=== PATIENT | male | born 1950 | race Two or more races ===

== ENCOUNTER 2017-01-04 13:39 | Emergency (ER) | payer OTHER ==
[~2017-01-04] VITALS: Ht 165.1 cm; Wt 97.0 kg
[~2017-01-04 13:39] MED LIST: ALEN35TA23 PO; ATOR20TA38 PO; ATOR40TA68 PO; CALC-67 PO; INSU100C SC; LANT3I SC; LISI20TA11 PO; LOSA25TA5 PO
[2017-01-04 13:45] VITALS: Ht 165.1 cm; Wt 97.0 kg
[2017-01-04] MEDS ORDERED: ONDANSETRON (ODT) 4 MG TAB ODT STA (14:41)
[2017-01-04] MEDS ORDERED: HYDROCODONE/APAP (10/325) TAB PO ONE (15:00)
--- NOTE | 2017-01-04 15:42 | RADRPT ---
PROCEDURE: XR Hip 2 Views. CLINICAL INDICATION: Left hip pain. TECHNIQUE: AP and frog lateral views of the left hip were performed. COMPARISON: None. FINDINGS: The osseous structures are intact. No destructive bony lesions are observed. Mild narrowing of the left hip joint is seen. Minimal osteophytosis is seen along the superior margin of the acetabulum. The soft tissues surrounding the hip are unremarkable. IMPRESSION: Mild osteoarthritis of the left hip. If further characterization is needed CT or MRI could be helpful. If there is high clinical suspicion for traumatic injury, further evaluation with CT should be consi dered. RPTAT: AA .Asher Gilman MD, MD Date Time Electronically viewed and signed by .Asher Gilman MD, on 01/04/2017 15:42 .P/
--- NOTE | 2017-01-04 15:45 | RADRPT ---
PROCEDURE: XR Lumbar Spine 3 Views. CLINICAL INDICATION: Low back pain. TECHNIQUE: Lumbar spine study including AP, lateral and coned L5-S1 views was performed. COMPARISON: No prior studies are available for comparison. FINDINGS: Lumbar spine demonstrates a normal lordosis. No fractures or destructive bony lesions are observed. Moderate intervertebral disk space narrowing is identified from T10-T12. Mild intervertebral disk space narrowing is identified at T12-L1. Minimal anterior osteophytosis is identified from L1-L5. The facet joints are grossly unremarkable. Calcified atherosclerosis is noted in the aorta. IMPRESSION: Moderate degenerative disk disease from T10-T12. Mild degenerative disk disease from T12-L5. Calcified atherosclerosis in the aorta. If further characterization is needed CT or MRI could be helpful. If there is high clinical suspicion for traumatic injury, further evaluation with CT should be consi dered. RPTAT: AA .Asher Gilman MD, MD Date Time Electronically viewed and signed by .Asher Gilman MD, MD on 01/04/2017 15:44 .P/
[2017-01-04] MEDS ORDERED: IBUP800T25 PO (15:52)
[2017-01-04] MEDS ORDERED: HYDR-906 PO (15:52)
--- NOTE | 2017-01-04 15:56 | ERD ---
ER Documentation Chief Complaint Date/Time DATE: 01/04/17 TIME: 15:53 Chief Complaint 9/10 lower back pain x 2 weeks HPI Patient is a 66-year-old male who has lower back pain on the left side he has had for over 2 weeks. He has taken medications such as tramadol, ibuprofen, meloxicam which have not helped. The pain radiates down the left side it is an 8 out of 10 sharp. There is no trauma. No numbness or tingling. No bowel or bladder incontinence. No saddle anesthesia. Patient is ambulatory. Denies any dysuria hematuria or increased urinary frequency. ROS All systems reviewed and are negative except as per history of present illness. Medications Home Meds Active Scripts Hydrocodone/Acetaminophen (Hector 5-325 Tablet) 1 Each Tablet, 1 TAB PO Q6H Y for PAIN, #20 TAB Prov:EMMANUEL MIKE PA-C 01/04/17 Ibuprofen* (Motrin*) 800 Mg Tab, 800 MG PO Q6, #30 TAB Prov:EMMANUEL MIKE PA-C 01/04/17 Reported Medications Atorvastatin* (Atorvastatin*) 40 Mg Tablet, 40 MG PO QHS, #30 TAB 05/25/16 Losartan Potassium* (Losartan Potassium*) 25 Mg Tablet, 25 MG PO DAILY, TAB 05/25/16 Insulin Lispro (Humalog) 100 U/Ml Cartridge, 0 SC SLIDING SCALE AC, EA 07/29/15 Insulin Glargine* (Lantus*) 100 Unit/Ml Soln, 1 UNIT SC BID, #1 VIAL 07/29/15 Lisinopril* (Lisinopril*) 20 Mg Tablet, 20 MG PO DAILY, #30 TAB 07/29/15 Alendronate Sodium* (Alendronate Sodium*) 35 Mg Tablet, 35 MG PO Q7D, #4 TAB 07/29/15 Atorvastatin Calcium* (Atorvastatin Calcium*) 20 Mg Tablet, 20 MG PO QHS, #30 TAB 07/29/15 Calcium Carbonate/Vitamin D3* (Os-Gus 500+D*) 1 Tab Tablet, 1 TAB PO TID, TAB 07/29/15 Allergies Allergies: Coded Allergies: No Known Allergy (Unverified , 01/04/17) PMhx/Soc History of Surgery: Yes (CATARACT BOTH EYES, ) Anesthesia Reaction: No Hx Neurological Disorder: No Hx Respiratory Disorders: No Hx Cardiac Disorders: Yes (HTN) Hx Psychiatric Problems: No Hx Miscellaneous Medical Probl: Yes (HIGH CHOLESTEROL DIABETES OSTEOPOROSIS) Hx Alcohol Use: No Hx Substance Use: No Hx Tobacco Use: No Smoking Status: Never smoker FmHx Family History: diabetes Physical Exam Vitals Vital Signs Date Time Temp Pulse Resp B/P Pulse Ox O2 Delivery O2 Flow Rate FiO2 01/04/17 13:45 98.2 83 18 128/62 95 Physical Exam INITIAL VITAL SIGNS: Reviewed by me GENERAL: Awake, alert and oriented x 4, well appearing, nontoxic, speaking in full sentences. No acute distress HEAD: Atraumatic NECK: Supple. No masses. Full range of motion. No meningismus. No midline tenderness. RESPIRATORY: Clear to auscultation bilaterally. Symmetric chest wall rise. No wheezing or rales. No accessory muscle use. CV: Regular rate and rhythm. No murmurs, rubs, or gallops. abd: Soft nondistended, nontender EXTREMITIES: No clubbing or cyanosis. No edema. Moving all extremities normally. BACK: No midline tenderness to palpation. No step-offs. Results 24 hrs Current Medications Medications (Trade) Dose Ordered Sig/Robel Route PRN Reason Start Time Stop Time Status Last Admin Dose Admin Acetaminophen/ Hydrocodone Bitart (Hector (10/325)) 1 tab ONCE ONCE PO 01/04/17 15:00 01/04/17 15:01 DC Ondansetron HCl (Zofran Odt) 4 mg ONCE STAT ODT 01/04/17 14:41 01/04/17 14:43 DC Procedures/MDM The differential diagnosis includes but is not limited to muscle strain, ligament strain, contusion, arthritis, discogenetic disease, non-musculoskeletal , cauda equina syndrome, cord compression, abscess and others. Patients is alert, oriented, well appearing, and in no distress with normal vital signs. There is no fever, tachycardia, or tachypnea. X-ray lumbar spine and hip showed no acute traumatic abnormalities. Patient was discharged with ibuprofen and Hector a copy of radiology reports. Patient counseled regarding my diagnostic impression and care plan. Prior to discharge all questions answered. Pt agrees with treatment plan and understands strict return precautions. Pt is instructed to follow up with primary care provider within 24-48 hours. Precautionary instructions provided including instructions to return to the ER if not improving or for any worsening or changing symptoms or concerns. Departure Diagnosis: Primary Impression: Back pain Condition: Stable Patient Instructions: Back Pain W/ Sciatica Additional Instructions: Call your primary care doctor TOMORROW for an appointment during the next 1-2 days.See the doctor sooner or return here if your condition worsens before your appointment time. EMMANUEL MIKE PA-C Jan 04, 2017 15:56
[2017-01-04 16:07] VITALS: BP 122/62; PULSE 70; RESP 18; TEMP 98.2
== END 2017-01-04 16:09 | disposition home or self-care (01) ==
LOC: FTE 13:39
DX: M54.5 Low back pain (principal); I10 Essential (primary) hypertension; E11.9 Type 2 diabetes mellitus without complications; Z79.4 Long term (current) use of insulin
CPT/HCPCS: 72100; 73510; Z7502; Z7610

== ENCOUNTER 2017-03-21 09:33 | Day surgery (SDC) | payer OTHER ==
--- NOTE | 2017-03-20 22:25 | PREOPHP ---
DATE OF ADMISSION: 03/21/2017 REASON FOR ADMISSION: This is a 66-year-old patient who is going to be admitted for diagnostic arth roscopy, partial medial and lateral meniscectomy, plica band release, application of Zepeda dressing, left knee. HISTORY OF PRESENT ILLNESS: This patient has been experiencing knee pain for quite a while. Conser vative treatment resulted in limited benefit to the patient. The patient has requested surgical int ervention. PAST MEDICAL HISTORY: Diabetes, hypertension and high cholesterol. SOCIAL HISTORY: Nonsmoker, nondrinker. FAMILY HISTORY: Positive for heart attack and kidney problem. PAST SURGICAL HISTORY: Cataract. ALLERGIES: NO HISTORY OF ALLERGY TO MEDICATION. MEDICATIONS: 1. Tramadol. 2. Vitamin D3. 3. Calcium. 4. Atorvastatin. 5. Losartan. 6. Elidel. 7. Lantus. 8. Midodrine. 9. Gemfibrozil. 10. Quinapril. 11. Trazodone. 12. Glimepiride. 13. Jardiance. 14. Folic acid. 15. Sulindac. 16. Patient also given Tylenol with Codeine No. 3 and Bactrim-DS for postoperative. PHYSICAL EXAMINATION: SKIN: Within normal limits. EARS, NOSE, THROAT: PERRLA. HEAD AND NECK: Normocephalic. Trachea midline. Bilateral symmetrical carotid pulses. No mass, no bruit, no lymphadenopathy. CARDIOVASCULAR: Normal sinus rhythm. S1, S2 normal. No murmur. No JVD. Slight peripheral edema. LUNGS: Clear. ABDOMEN: Protuberant. No organomegaly. No mass. Bowel sounds present. GENITOURINARY/RECTAL: Not done, not pertinent to this admission. MUSCULOSKELETAL: Height of 5 feet, weighing 200 pounds. Head and neck exam unremarkable. Upper ex tremities normal with normal neurovascular examination. Spine shows tenderness of the L4-L5 and L5- S1 facet joints. Both hips normal finding. Right knee shows no muscle atrophy. Range of motion no rmal. Left knee shows decreased range of motion from 0 to 115 degrees with synovitis and mild effus ion. There is tenderness over the medial and lateral joint. Positive Sonia test. Sensorimotor deep tendon reflexes seem to be intact. DIAGNOSTIC DATA: MRI of the left knee indicates a torn medial meniscus, moderate joint effusion, ch ondromalacia of patella, possible torn lateral meniscus. 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 Treatment plan, alternatives, risks and benefits discussed. Patient understands possibility of comp lications such as infection, bleeding, nerve damage, vascular damage, possibility of deep venous thr ombosis, pulmonary embolism, hypersensitivity from medication, and even . Turner result may not be obtained depending on known or unknown factor or factors. Formal H and P is supposed to be done by PCP. Dictated By: DONTA VELASQUEZ/NOAH Conf#: [id number] DID#: [id number]
[~2017-03-21] VITALS: Ht 165.1 cm; Wt 91.0 kg
[2017-03-21] VITALS (11 sets, daily range): BP systolic 110–122; BP diastolic 60–71; PULSE 73–90; RESP 11–20; Ht 165.1 cm; Wt 91.0 kg
[~2017-03-21 09:33] MED LIST changes: +CEFAZOLIN 2 GM/50 ML (PMX) 50 ML IVPB SCH; +HYDR-906 PO; +IBUP800T25 PO
[2017-03-21] MEDS ORDERED: LANT3I SC (10:06)
[2017-03-21] MEDS ORDERED: EMPA25TA PO (10:06)
[2017-03-21] MEDS ORDERED: LINA5TAB PO (10:07)
[2017-03-21] MEDS ORDERED: GLIM4TAB PO (10:07)
[2017-03-21] MEDS ORDERED: CHOL100062 PO (10:09)
[2017-03-21] MEDS ORDERED: FOLI-49 PO (10:09)
[2017-03-21] MEDS ORDERED: MULTI PO (10:10)
[2017-03-21] MEDS ORDERED: SULI150T39 PO (10:10)
[2017-03-21] MEDS ORDERED: ROCURONIUM 50 MG INJ ONE (10:54)
[2017-03-21] MEDS ORDERED: CEFAZOLIN 1 GM INJ ONE (10:54)
[2017-03-21] MEDS ORDERED: MIDAZOLAM 1 MG/ML 2 ML INJ ONE (10:54)
[2017-03-21] MEDS ORDERED: DEXAMETHASONE 4 MG/ML 1 ML INJ ONE (10:54)
[2017-03-21] MEDS ORDERED: NEOSTIGMINE 3 MG/3 ML SYRINGE ONE (10:54)
[2017-03-21] MEDS ORDERED: ONDANSETRON 4 MG INJ ONE (10:54)
[2017-03-21] MEDS ORDERED: PROPOFOL 20 ML ONE (10:54)
[2017-03-21] MEDS ORDERED: FENTAnyl 50 MCG/ML VIAL ONE ×2 (10:54→13:20)
[2017-03-21] MEDS ORDERED: GLYCOPYRROLATE 0.4 MG INJ ONE (10:54)
[2017-03-21] MEDS ORDERED: EPHEDrine SULFATE 50 MG/5 ML SYG ONE (11:03)
[2017-03-21] MEDS ORDERED: KETOROLAC 30 MG INJ ONE (11:13)
[2017-03-21] MEDS ORDERED: DEXTROSE 50% 50 ML SYRINGE IV ONE (11:30)
[2017-03-21] MEDS ORDERED: SUGAMMADEX SODIUM 200 MG/2 ML VIAL IV ONE ×2 (11:44→13:41)
[2017-03-21] MEDS ORDERED: PHENYLephrine (100 MCG/ML) 5ML SYG ONE (13:09)
[2017-03-21] MEDS ORDERED: SODIUM CL BACTERIOSTATIC 30 ML INJ ONE (13:20)
[2017-03-21] MEDS ORDERED: morphine SULFATE/PF (10 MG/10 ML) INJ ONE (13:20)
--- NOTE | 2017-03-21 13:59 | SIPON ---
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
[2017-03-21] MEDS ORDERED: HYDROCODONE/APAP (5/325) TAB PO PRN ×2 (14:00)
[2017-03-21] MEDS ORDERED: ONDANSETRON 4 MG INJ IV PRN (14:30)
[2017-03-21] MEDS ORDERED: FENTAnyl 50 MCG/ML VIAL IV PRN ×3 (14:30)
[2017-03-21] MEDS ORDERED: OXYCODONE/ACETAMINOPHEN (5/325) TAB PO PRN ×2 (14:30)
[2017-03-21] MEDS ORDERED: KETOROLAC 30 MG INJ IV PRN (14:30)
[2017-03-21] MEDS ORDERED: METOCLOPRAMIDE 10 MG INJ IV PRN (14:30)
[2017-03-21] MEDS ORDERED: INSULIN ASPART [NOVOLOG] 3 ML PEN SC ONE (14:30)
--- NOTE | 2017-03-21 14:55 | OPR ---
DATE OF OPERATION: PREOPERATIVE DIAGNOSES: 1. Torn medial meniscus. 2. Torn lateral meniscus. 3. 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 POSTOPERATIVE DIAGNOSES: 1. Torn medial meniscus. 2. Torn lateral meniscus. 3. Limited synovitis. 4. Small plica band. PROCEDURE: Diagnostic arthroscopy, partial medial meniscectomy, partial lateral meniscectomy, limit ed synovectomy and plica band release of left knee. ANESTHESIA: General. BLEEDING: Minimal. COMPLICATIONS: None. OPERATIVE PROCEDURE: The patient was transferred to the operating room and placed on the table in s upine position. General anesthesia was induced. Ancef was given IV. Left knee was shaved, p repped and draped in routine fashion. Landmarks were marked. And 2 regular anterior portal parapat ellar tendon, 1 medially and 1 lateral, and operative arthroscopy was commenced. Examination of sup rapatellar pouch indicated the plica band and limited synovitis in the suprapatellar pouch. 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 Going to the medial compartment, there were flap tear of the posterior and middle third, an d therefore, partial medial meniscectomy to stable margins was done. The periphery of the meniscus was intact. Articular surface indicates a grade II and medial grade III chondromalacia. was intact but void of vascularity. Going to lateral compartment, there was grade II to III chondromala mariana. There was a large flap tear of the anterior one third of the lateral meniscus. Periphery was intact, limited synovectomy was done in the medial and lateral compartments and also suprapatellar p ouch. Small plica band was released. Procedure was terminated. The knee was evacuated from debris with copious amount of saline irrigation. Portal was closed with benzoin and Steri-Strips. A 10 m g of Duramorph mixed with 10 mL of injectable saline was injected into the knee. Sterile Zepeda dres sing was applied. Procedure was terminated. General anesthesia was stopped. She was taken to the recovery room in good and stable condition. Dictated By: DONTA VELASQUEZ/NOAH Conf#: [id number] DID#: [id number]
== END 2017-03-21 16:04 | disposition home or self-care (01) ==
LOC: SDS 09:33
PROVIDERS: ATTEND Internal Medicine Endocrinology, Diabetes & Metabolism
DX: S83.282A Other tear of lateral meniscus, current injury, left knee, initial encounter (principal); S83.242A Other tear of medial meniscus, current injury, left knee, initial encounter; M67.52 Plica syndrome, left knee; I10 Essential (primary) hypertension; E11.9 Type 2 diabetes mellitus without complications; X58.XXXA Exposure to other specified factors, initial encounter; Y93.89 Activity, other specified; Y92.89 Other specified places as the place of occurrence of the external cause; Y99.8 Other external cause status
CPT/HCPCS: 82962; C1713; J0690; J1100; J1815; J1885; J2250; J2274; J2370; J2405; J2710; J3010